=== PATIENT | female | born 1970 | race Caucasian/White ===

== ENCOUNTER 2016-11-08 17:24 | Emergency (ER) | payer OTHER ==
[2016-11-08 19:11] LABS: BASOPHIL 0.3 % (0-2); EOSINOPHIL 1.6 % (0-5); HCT 43.5 % (37.0-47.0); HGB 14.6 g/dl (12.5-16.0); LYMPHOCYTE 36.6 % (15-48); MCH 29.8 pg (25.0-31.0); MCHC 33.6 g/dL (32.0-36.0); MCV 88.8 fL (78.0-100.0); MONOCYTE 8.8 % (0-12); MPV 9.6 fL (6.0-9.5); NEUTROPHIL 52.7 % (41-80); PLT 282 K/uL (150-400); RDW 12.6 % (11.5-14.0); WBC 8.7 K/uL (4.0-10.5)
[2016-11-08 19:12] LABS: ALBUMIN 4.6 g/dL (3.5-5.0); BILIRUBIN - TOTAL 0.3 mg/dL (0.1-1.0); CREATININE 0.8 mg/dL (0.5-1.0); GLOBULIN (CALCULATION) 2.5 g/dL (2.2-4.2); POTASSIUM 4.3 mmol/L (3.5-5.1); TOTAL PROTEIN 7.1 g/dL (6.4-8.3)
[2016-11-08 19:23] LABS: BILIRUBIN NEGATIVE (NEGATIVE); BLOOD NEGATIVE Ery/uL (NEGATIVE); CLARITY CLEAR (CLEAR); COLOR YELLOW (YELLOW); GLUCOSE (U) NORMAL (NORMAL); KETONE (U) NEGATIVE (NEGATIVE); LEUKOCYTES NEGATIVE Leu/uL (NEGATIVE); NITRITE NEGATIVE (NEGATIVE); PROTEIN NEGATIVE (NEGATIVE); SPECIFIC GRAVITY <=1.005 (1.001-1.030); UROBILINOGEN 0.2 mg/dL (0.2-1.0)
== END 2016-11-08 21:12 | disposition home or self-care (01) ==
LOC: FER 17:24
PROVIDERS: Emergency Medicine
DX: R10.9 Unspecified abdominal pain (principal); R11.0 Nausea; G43.909 Migraine, unspecified, not intractable, without status migrainosus; F32.9 Major depressive disorder, single episode, unspecified; F41.9 Anxiety disorder, unspecified; Z87.42 Personal history of other diseases of the female genital tract; Z85.44 Personal history of malignant neoplasm of other female genital organs; Z88.2 Allergy status to sulfonamides; Z79.899 Other long term (current) drug therapy; Z98.890 Other specified postprocedural states
CPT/HCPCS: 36415; 80053; 81003; 83690; 85025